=== PATIENT | male | born 1950 | race African-American/Black ===

== ENCOUNTER 2020-11-19 09:35 | Day surgery (SDC) | payer MEDICARE, BC, OTHER ==
[2020-11-18 11:32] VITALS: BMI 31.9
[2020-11-19] MEDS ORDERED: Thrombin 5000 UNITS/5 ML VIAL ONE (09:57)
[2020-11-19] MEDS ORDERED: Fentanyl 100 MCG/2 ML VIAL ONE ×5 (10:48→17:07)
[2020-11-19] MEDS ORDERED: Ondansetron PF 4 MG/2 ML Vial ONE (11:00)
[2020-11-19] MEDS ORDERED: Lidocaine 1% PF 5 ML VIAL ONE (11:00)
[2020-11-19] MEDS ORDERED: Dexamethasone 20 MG/5 ML VIAL ONE (11:00)
[2020-11-19] MEDS ORDERED: ePHEDrine Sulfate 50 MG/10 ML VIAL ONE (11:00)
[2020-11-19] MEDS ORDERED: PROPOFOL 200 MG/20 ML VIAL ONE (11:00)
[2020-11-19] MEDS ORDERED: PHENYLEPHRINE-NS 100 MCG/ML 10 ML SYRINGE ONE (11:00)
[2020-11-19] MEDS ORDERED: SUGAMMADEX SODIUM 200 MG/2 ML VIAL ONE (13:40)
[2020-11-19] MEDS ORDERED: Promethazine HCl 25 MG/ML VIAL SLOW IVP PRN (13:42)
[2020-11-19] MEDS ORDERED: Ondansetron HCl/PF 4 MG/2 ML Vial IVP PRN (13:42)
[2020-11-19] MEDS ORDERED: Meperidine HCl/PF 25 MG/ML VIAL SLOW IVP PRN (13:42)
[2020-11-19] MEDS ORDERED: Ketorolac Tromethamine 30 MG/ML VIAL IVP PRN (13:42)
[2020-11-19] MEDS ORDERED: HYDROmorphone 2 MG/ML VIAL SLOW IVP PRN (13:42)
[2020-11-19] MEDS ORDERED: Milk Of Magnesia 30 ML UDCUP PO PRN (14:42)
[2020-11-19] MEDS ORDERED: Acetaminophen 325 MG TAB PO PRN (14:42)
[2020-11-19] MEDS ORDERED: traMADol HCl 50 MG TAB PO PRN (14:42)
[2020-11-19] MEDS ORDERED: Morphine 2 MG/ML VIAL SLOW IVP PRN (14:42)
[2020-11-19] MEDS ORDERED: Mag-Al 1200 mg/1200 mg/30 ML UDCUP PO PRN (14:42)
[2020-11-19] MEDS ORDERED: Bisacodyl 10 MG SUPP PR PRN (14:42)
[2020-11-19] MEDS ORDERED: HYDROmorphone 0.5 MG/0.5 ML SYRINGE ONE (14:51)
[2020-11-19] MEDS ORDERED: HYDROmorphone 2 MG/ML VIAL ONE (15:29)
[2020-11-19] MEDS: Sodium Chloride 0.9% 1,000 ML IV SCH (17:59)
[2020-11-19] MEDS: Morphine 4 MG/ML VIAL SLOW IVP PRN (18:22)
[2020-11-19] MEDS: CEFAZOLIN 2 GM in Premix Bag 1 BAG IVPB SCH (18:59)
[2020-11-19] MEDS: Amlodipine 10 MG TAB PO SCH (20:43)
[2020-11-19] MEDS: Rosuvastatin 10 MG TAB PO SCH (20:43)
[2020-11-19] MEDS: HYDROcodone/Acetaminophen 7.5/325 mg Tablet PO PRN (20:51)
[2020-11-20] MEDS: HYDROcodone/Acetaminophen 7.5/325 mg Tablet PO PRN ×4 (02:03→22:53)
[2020-11-20] MEDS: Sodium Chloride 0.9% 1,000 ML IV SCH ×2 (02:03→20:46)
[2020-11-20] MEDS: CEFAZOLIN 2 GM in Premix Bag 1 BAG IVPB SCH (02:03)
[2020-11-20] MEDS: tiZANidine HCl 4 MG TAB PO PRN ×2 (04:14→22:53)
[2020-11-20] MEDS: Morphine 4 MG/ML VIAL SLOW IVP PRN ×3 (07:56→15:34)
[2020-11-20] MEDS: Acetaminophen/Codeine 30-300mg Tablet PO PRN ×2 (12:00→20:45)
[2020-11-20] MEDS: Rosuvastatin 10 MG TAB PO SCH (20:45)
[2020-11-20] MEDS: Amlodipine 10 MG TAB PO SCH (20:45)
[2020-11-21 09:29] VITALS: BP 138/65; TEMP 99.6
[2020-11-21] MEDS ORDERED: Simethicone Chewable 80 MG TAB PO PRN (09:54)
[2020-11-21] MEDS ORDERED: Pepto Bismol Chew TAB PO PRN (09:54)
[2020-11-21] MEDS: HYDROcodone/Acetaminophen 7.5/325 mg Tablet PO PRN (10:15)
[2020-11-21] MEDS: tiZANidine HCl 4 MG TAB PO PRN (10:15)
[2020-11-21] MEDS: Sodium Chloride 0.9% 1,000 ML IV SCH (10:31)
== END 2020-11-21 15:18 | disposition home or self-care (01) ==
LOC: SDC 09:35 → ONC 14:42 → SDC 11-21 15:18
PROVIDERS: ATTEND Surgery
PROC: 01NB0ZZ Release Lumbar Nerve, Open Approach (ICD-10-PCS; principal; 2020-11-19)
PROC: 0SB20ZZ Excision of Lumbar Vertebral Disc, Open Approach (ICD-10-PCS; 2020-11-19)
DX: M51.26 Other intervertebral disc displacement, lumbar region (principal); M54.16 Radiculopathy, lumbar region; M48.062 Spinal stenosis, lumbar region with neurogenic claudication; Z79.899 Other long term (current) drug therapy
CPT/HCPCS: 76000; 93970; J0690; J1100; J1170; J2270; J2405; J2704; J3010; J3370

== ENCOUNTER 2025-02-20 10:12 | Outpatient (CLI) | payer MEDICARE, BC, OTHER | END 2025-02-20 10:13 | disposition home or self-care (01) | LOC: SCSRAD 10:12 | PROVIDERS: ATTEND Orthopaedic Surgery | DX: M54.2 Cervicalgia (principal); M47.812 Spondylosis without myelopathy or radiculopathy, cervical region | CPT/HCPCS: 72040 ==

== ENCOUNTER 2025-03-06 19:35 | Inpatient (IN) | payer MEDICARE, BC, OTHER ==
[~2025-03-06 19:35] MED LIST: Iopamidol-370 76% 500 ML MDV (1 ML CHARGE) ONE
[2025-03-06 19:59] LABS: #Basophils 0.03 10x3/uL (0.0-0.2); #Eosinophils 0.07 10x3/uL (0.0-0.7); #Monocytes 1.40 10x3/uL (0.11-0.59); #Neutrophils 10.38 10x3/uL (1.40-6.50); %Basophils 0.2 % (0.0-1.0); %Eosinophils 0.5 % (0.0-10.0); %Lymphocytes 13.0 % (21.0-51.0); %Monocytes 10.2 % (0.0-10.0); %Neutrophils 75.6 % (42.0-75.0); Hematocrit 39.8 % (42.0-52.0); Hemoglobin 13.0 g/dL (14.0-18.0); Mean Corpuscular Hemoglobin 30.4 pg (27.0-31.0); Mean Corpuscular Volume 93.0 fL (78.0-98.0); Platelet Count 310 10x3/uL (130-400); Red Blood Cell (RBC) Count 4.28 mill/uL (4.70-6.10); White Blood Cell (WBC) Count 13.74 10x3/uL (4.8-10.8)
[2025-03-06 20:22] LABS: ALT (SGPT) 26 U/L (Less than 45); AST (SGOT) 20 U/L (11-34); Albumin 2.8 g/dL (3.1-4.5); Alkaline Phosphatase 90 U/L (40-110); Anion Gap 15 mmol/L (10-20); BUN (Urea Nitrogen) 21 mg/dL (8.4-25.7); Bilirubin, Total 0.6 mg/dL (0.3-1.2); Calc. Creatinine Clearance 0 mL/min (70-130); Calcium 9.5 mg/dL (7.8-10.44); Carbon Dioxide 23 mmol/L (23-31); Chloride 102 mmol/L (98-107); Globulin 4.9 g/dL (2.4-3.5); Glucose 118 mg/dL (83-110); Potassium 4.1 mmol/L (3.5-5.1); Sodium 136 mmol/L (136-145)
[2025-03-06] MEDS ORDERED: LevoFLOXacin 750 mg/D5W 150 ml Premix Bag ONE (21:57)
[2025-03-06] MEDS ORDERED: Heparin 5,000 UNITS/ML VIAL ONE ×2 (21:57→22:40)
[2025-03-06] MEDS ORDERED: Cefepime 2 GM VIAL ONE (21:57)
[2025-03-06 22:26] LABS: INR-International Normal Ratio 1.1; Prothrombin Time 14.5 sec (12.0-14.7)
[2025-03-06 22:27] LABS: PTT 32.8 sec (22.9-36.1)
[2025-03-07] MEDS ORDERED: Ondansetron PF 4 MG/2 ML Vial IVP PRN (01:19)
[2025-03-07] MEDS ORDERED: Heparin 10,000 UNITS/ 10 ML VIAL SLOW IVP SCH (03:30)
[2025-03-07 05:19] LABS: #Basophils Less than 0.03 10x3/uL (0.0-0.2); #Eosinophils Less than 0.03 10x3/uL (0.0-0.7); #Monocytes 1.57 10x3/uL (0.11-0.59); #Neutrophils 12.46 10x3/uL (1.40-6.50); %Basophils 0.1 % (0.0-1.0); %Eosinophils 0.1 % (0.0-10.0); %Lymphocytes 8.5 % (21.0-51.0); %Monocytes 10.2 % (0.0-10.0); %Neutrophils 80.7 % (42.0-75.0); Hematocrit 39.2 % (42.0-52.0); Hemoglobin 12.9 g/dL (14.0-18.0); Mean Corpuscular Hemoglobin 30.5 pg (27.0-31.0); Mean Corpuscular Volume 92.7 fL (78.0-98.0); Platelet Count 311 10x3/uL (130-400); Red Blood Cell (RBC) Count 4.23 mill/uL (4.70-6.10); White Blood Cell (WBC) Count 15.44 10x3/uL (4.8-10.8)
[2025-03-07 05:43] LABS: Anion Gap 15 mmol/L (10-20); BUN (Urea Nitrogen) 22 mg/dL (8.4-25.7); Calc. Creatinine Clearance 0 mL/min (70-130); Calcium 9.6 mg/dL (7.8-10.44); Carbon Dioxide 23 mmol/L (23-31); Chloride 101 mmol/L (98-107); Glucose 124 mg/dL (83-110); Potassium 3.9 mmol/L (3.5-5.1); Sodium 135 mmol/L (136-145)
[2025-03-07 05:49] LABS: PTT 184.6 sec (22.9-36.1)
[2025-03-07] MEDS ORDERED: Artificial Tear Ophth Sol 15 ML BOT EA EYE PRN (07:28)
[2025-03-07] MEDS: Vancomycin (BATCH) 2.5 GM in Premix 1 BAG IVPB SCH (07:36)
[2025-03-07] MEDS: Multivitamin W/ Minerals 1 TAB PO SCH (09:52)
[2025-03-07 12:02] VITALS: BMI 31.8
[2025-03-07] MEDS: Ibuprofen 200 MG TAB PO SCH ×2 (16:51→20:59)
[2025-03-07] MEDS: Pantoprazole 40 MG DR.TAB PO SCH (16:51)
[2025-03-07] MEDS: Rosuvastatin 5 MG TAB PO SCH (20:58)
[2025-03-07] MEDS: Apixaban 5 MG TAB PO SCH (20:59)
[2025-03-07] MEDS: Acetaminophen 325 MG TAB PO PRN (23:55)
[2025-03-07] MEDS: Simethicone Chewable 80 MG TAB PO PRN (23:55)
[2025-03-08] MEDS: LevoFLOXacin 750 mg/D5W 750 MG in Premix 1 BAG IVPB SCH (02:40)
[2025-03-08 04:27] LABS: #Basophils Less than 0.03 10x3/uL (0.0-0.2); #Eosinophils 0.09 10x3/uL (0.0-0.7); #Monocytes 1.65 10x3/uL (0.11-0.59); #Neutrophils 10.72 10x3/uL (1.40-6.50); %Basophils 0.1 % (0.0-1.0); %Eosinophils 0.6 % (0.0-10.0); %Lymphocytes 11.5 % (21.0-51.0); %Monocytes 11.7 % (0.0-10.0); %Neutrophils 75.7 % (42.0-75.0); Hematocrit 33.9 % (42.0-52.0); Hemoglobin 11.2 g/dL (14.0-18.0); Mean Corpuscular Hemoglobin 30.4 pg (27.0-31.0); Mean Corpuscular Volume 91.9 fL (78.0-98.0); Platelet Count 292 10x3/uL (130-400); Red Blood Cell (RBC) Count 3.69 mill/uL (4.70-6.10); White Blood Cell (WBC) Count 14.16 10x3/uL (4.8-10.8)
[2025-03-08 05:22] LABS: Anion Gap 13 mmol/L (10-20); BUN (Urea Nitrogen) 24 mg/dL (8.4-25.7); Calc. Creatinine Clearance 68 mL/min (70-130); Calcium 8.6 mg/dL (7.8-10.44); Carbon Dioxide 25 mmol/L (23-31); Chloride 99 mmol/L (98-107); Glucose 113 mg/dL (83-110); Potassium 3.6 mmol/L (3.5-5.1); Sodium 133 mmol/L (136-145)
[2025-03-08] MEDS ORDERED: Vancomycin 1 GM in Premix 1 BAG IVPB SCH (09:00)
[2025-03-08] MEDS: Pantoprazole 40 MG DR.TAB PO SCH (10:24)
[2025-03-08] MEDS: Vancomycin (BATCH) 2.5 GM in Premix 1 BAG IVPB SCH (10:27)
[2025-03-09 04:02] LABS: #Basophils Less than 0.03 10x3/uL (0.0-0.2); #Eosinophils 0.08 10x3/uL (0.0-0.7); #Monocytes 1.57 10x3/uL (0.11-0.59); #Neutrophils 10.68 10x3/uL (1.40-6.50); %Basophils 0.1 % (0.0-1.0); %Eosinophils 0.6 % (0.0-10.0); %Lymphocytes 11.3 % (21.0-51.0); %Monocytes 11.2 % (0.0-10.0); %Neutrophils 76.4 % (42.0-75.0); Hematocrit 34.1 % (42.0-52.0); Hemoglobin 11.3 g/dL (14.0-18.0); Mean Corpuscular Hemoglobin 30.8 pg (27.0-31.0); Mean Corpuscular Volume 92.9 fL (78.0-98.0); Platelet Count 318 10x3/uL (130-400); Red Blood Cell (RBC) Count 3.67 mill/uL (4.70-6.10); White Blood Cell (WBC) Count 13.99 10x3/uL (4.8-10.8)
[2025-03-09 04:17] LABS: Vancomycin, Random 17.6 ug/mL (See Comment)
[2025-03-09 04:32] LABS: Anion Gap 11 mmol/L (10-20); BUN (Urea Nitrogen) 27 mg/dL (8.4-25.7); Calc. Creatinine Clearance 68 mL/min (70-130); Calcium 8.9 mg/dL (7.8-10.44); Carbon Dioxide 23 mmol/L (23-31); Chloride 105 mmol/L (98-107); Glucose 123 mg/dL (83-110); Potassium 4.0 mmol/L (3.5-5.1); Sodium 135 mmol/L (136-145)
[2025-03-09] MEDS: Vancomycin 1.5 GM / NS 500ML VIAL-2-BAG IVPB SCH (10:32)
[2025-03-11 04:23] LABS: #Basophils 0.03 10x3/uL (0.0-0.2); #Eosinophils 0.29 10x3/uL (0.0-0.7); #Monocytes 0.85 10x3/uL (0.11-0.59); #Neutrophils 5.50 10x3/uL (1.40-6.50); %Basophils 0.4 % (0.0-1.0); %Eosinophils 3.4 % (0.0-10.0); %Lymphocytes 20.7 % (21.0-51.0); %Monocytes 10.1 % (0.0-10.0); %Neutrophils 65.2 % (42.0-75.0); Hematocrit 34.3 % (42.0-52.0); Hemoglobin 11.0 g/dL (14.0-18.0); Mean Corpuscular Hemoglobin 30.4 pg (27.0-31.0); Mean Corpuscular Volume 94.8 fL (78.0-98.0); Platelet Count 330 10x3/uL (130-400); Red Blood Cell (RBC) Count 3.62 mill/uL (4.70-6.10); White Blood Cell (WBC) Count 8.44 10x3/uL (4.8-10.8)
[2025-03-11 04:46] LABS: Anion Gap 13 mmol/L (10-20); BUN (Urea Nitrogen) 25 mg/dL (8.4-25.7); Calc. Creatinine Clearance 87 mL/min (70-130); Calcium 8.6 mg/dL (7.8-10.44); Carbon Dioxide 23 mmol/L (23-31); Chloride 110 mmol/L (98-107); Glucose 99 mg/dL (83-110); Potassium 4.1 mmol/L (3.5-5.1); Sodium 142 mmol/L (136-145)
[2025-03-12 04:17] LABS: #Basophils 0.03 10x3/uL (0.0-0.2); #Eosinophils 0.27 10x3/uL (0.0-0.7); #Monocytes 0.81 10x3/uL (0.11-0.59); #Neutrophils 5.21 10x3/uL (1.40-6.50); %Basophils 0.4 % (0.0-1.0); %Eosinophils 3.3 % (0.0-10.0); %Lymphocytes 23.0 % (21.0-51.0); %Monocytes 9.8 % (0.0-10.0); %Neutrophils 63.3 % (42.0-75.0); Hematocrit 33.3 % (42.0-52.0); Hemoglobin 10.9 g/dL (14.0-18.0); Mean Corpuscular Hemoglobin 30.1 pg (27.0-31.0); Mean Corpuscular Volume 92.0 fL (78.0-98.0); Platelet Count 293 10x3/uL (130-400); Red Blood Cell (RBC) Count 3.62 mill/uL (4.70-6.10); White Blood Cell (WBC) Count 8.23 10x3/uL (4.8-10.8)
[2025-03-12 04:27] LABS: Anion Gap 12 mmol/L (10-20); BUN (Urea Nitrogen) 21 mg/dL (8.4-25.7); Calc. Creatinine Clearance 93 mL/min (70-130); Calcium 8.5 mg/dL (7.8-10.44); Carbon Dioxide 22 mmol/L (23-31); Chloride 110 mmol/L (98-107); Glucose 97 mg/dL (83-110); Magnesium 2.0 mg/dL (1.6-2.6); Potassium 3.9 mmol/L (3.5-5.1); Sodium 140 mmol/L (136-145)
[2025-03-13] MEDS ORDERED: Communication Order-Pharmacy FS PRN (08:45)
[2025-03-13] MEDS ORDERED: Enoxaparin 80 MG (0.8 mL) SYRINGE SC SCH (09:00)
[2025-03-13] MEDS: Enoxaparin 100 MG (1 mL) SYRINGE SC SCH (09:20)
[2025-03-15] MEDS ORDERED: Iopamidol 370 76% 100 ML VIAL ONE (09:06)
[2025-03-15] MEDS ORDERED: Lidocaine 1% (PF) 30 ML VIAL ONE (11:26)
[2025-03-15] MEDS ORDERED: Nitroglycerin 0.4 MG TAB (25 Tab Bottle) SL PRN (13:47)
[2025-03-16 08:07] LABS: #Basophils 0.03 10x3/uL (0.0-0.2); #Eosinophils 0.31 10x3/uL (0.0-0.7); #Monocytes 0.52 10x3/uL (0.11-0.59); #Neutrophils 3.26 10x3/uL (1.40-6.50); %Basophils 0.5 % (0.0-1.0); %Eosinophils 5.4 % (0.0-10.0); %Lymphocytes 27.8 % (21.0-51.0); %Monocytes 9.1 % (0.0-10.0); %Neutrophils 57.0 % (42.0-75.0); Hematocrit 31.7 % (42.0-52.0); Hemoglobin 10.3 g/dL (14.0-18.0); Mean Corpuscular Hemoglobin 30.1 pg (27.0-31.0); Mean Corpuscular Volume 92.7 fL (78.0-98.0); Platelet Count 229 10x3/uL (130-400); Red Blood Cell (RBC) Count 3.42 mill/uL (4.70-6.10); White Blood Cell (WBC) Count 5.72 10x3/uL (4.8-10.8)
[2025-03-16 08:19] LABS: Anion Gap 12 mmol/L (10-20); BUN (Urea Nitrogen) 12 mg/dL (8.4-25.7); Calc. Creatinine Clearance 92 mL/min (70-130); Calcium 8.5 mg/dL (7.8-10.44); Carbon Dioxide 22 mmol/L (23-31); Chloride 111 mmol/L (98-107); Glucose 105 mg/dL (83-110); Potassium 3.8 mmol/L (3.5-5.1); Sodium 141 mmol/L (136-145)
[2025-03-16] MEDS: Enoxaparin 100 MG (1 mL) SYRINGE SC SCH (08:37)
[2025-03-17 03:54] LABS: #Basophils 0.03 10x3/uL (0.0-0.2); #Eosinophils 0.38 10x3/uL (0.0-0.7); #Monocytes 0.67 10x3/uL (0.11-0.59); #Neutrophils 2.92 10x3/uL (1.40-6.50); %Basophils 0.5 % (0.0-1.0); %Eosinophils 5.9 % (0.0-10.0); %Lymphocytes 37.8 % (21.0-51.0); %Monocytes 10.4 % (0.0-10.0); %Neutrophils 45.2 % (42.0-75.0); Hematocrit 32.6 % (42.0-52.0); Hemoglobin 10.8 g/dL (14.0-18.0); Mean Corpuscular Hemoglobin 30.3 pg (27.0-31.0); Mean Corpuscular Volume 91.6 fL (78.0-98.0); Platelet Count 226 10x3/uL (130-400); Red Blood Cell (RBC) Count 3.56 mill/uL (4.70-6.10); White Blood Cell (WBC) Count 6.45 10x3/uL (4.8-10.8)
[2025-03-17 04:26] LABS: Anion Gap 12 mmol/L (10-20); BUN (Urea Nitrogen) 13 mg/dL (8.4-25.7); Calc. Creatinine Clearance 85 mL/min (70-130); Calcium 8.8 mg/dL (7.8-10.44); Carbon Dioxide 24 mmol/L (23-31); Chloride 110 mmol/L (98-107); Glucose 89 mg/dL (83-110); Potassium 3.9 mmol/L (3.5-5.1); Sodium 142 mmol/L (136-145)
[2025-03-19 04:37] LABS: #Basophils 0.03 10x3/uL (0.0-0.2); #Eosinophils 0.41 10x3/uL (0.0-0.7); #Monocytes 0.67 10x3/uL (0.11-0.59); #Neutrophils 3.17 10x3/uL (1.40-6.50); %Basophils 0.4 % (0.0-1.0); %Eosinophils 6.0 % (0.0-10.0); %Lymphocytes 37.4 % (21.0-51.0); %Monocytes 9.8 % (0.0-10.0); %Neutrophils 46.1 % (42.0-75.0); Hematocrit 32.1 % (42.0-52.0); Hemoglobin 10.4 g/dL (14.0-18.0); Mean Corpuscular Hemoglobin 29.5 pg (27.0-31.0); Mean Corpuscular Volume 90.9 fL (78.0-98.0); Platelet Count 242 10x3/uL (130-400); Red Blood Cell (RBC) Count 3.53 mill/uL (4.70-6.10); White Blood Cell (WBC) Count 6.87 10x3/uL (4.8-10.8)
[2025-03-19 05:05] LABS: Anion Gap 14 mmol/L (10-20); BUN (Urea Nitrogen) 14 mg/dL (8.4-25.7); Calc. Creatinine Clearance 95 mL/min (70-130); Calcium 8.8 mg/dL (7.8-10.44); Carbon Dioxide 23 mmol/L (23-31); Chloride 109 mmol/L (98-107); Glucose 87 mg/dL (83-110); Potassium 3.7 mmol/L (3.5-5.1); Sodium 142 mmol/L (136-145)
[2025-03-20] MEDS ORDERED: SUCCINYLCHOLINE/SOD CL,ISO/PF 200 MG/10 ML SYRINGE FS ONE (09:57)
[2025-03-20] MEDS ORDERED: Rocuronium Bromide 10 MG/ML (10ML VIAL) ONE (09:57)
[2025-03-20] MEDS ORDERED: PROPOFOL 20 ML ONE (09:57)
[2025-03-20] MEDS ORDERED: CEFAZOLIN 2 GM VIAL ONE (10:15)
[2025-03-20] MEDS ORDERED: Ketamine In 0.9 % NaCl 50 MG/5 ML SYRINGE ONE (11:02)
[2025-03-20] MEDS ORDERED: fentaNYL PF 100 MCG/2 ML SYRINGE ONE (15:07)
[2025-03-20] MEDS ORDERED: HYDROmorphone 0.5 MG/0.5 ML SYRINGE ONE ×3 (15:50→17:25)
[2025-03-20] MEDS ORDERED: HYDROmorphone 2 MG/ML VIAL ONE (16:43)
[2025-03-20] MEDS: CEFAZOLIN 2 GM VIAL ONE (18:49)
[2025-03-21] MEDS: Ketorolac Tromethamine 30 MG (1 mL) VIAL IVP SCH (01:55)
[2025-03-21 04:24] LABS: #Basophils Less than 0.03 10x3/uL (0.0-0.2); #Eosinophils Less than 0.03 10x3/uL (0.0-0.7); #Monocytes 0.92 10x3/uL (0.11-0.59); #Neutrophils 7.93 10x3/uL (1.40-6.50); %Basophils 0.2 % (0.0-1.0); %Eosinophils 0.2 % (0.0-10.0); %Lymphocytes 10.5 % (21.0-51.0); %Monocytes 9.2 % (0.0-10.0); %Neutrophils 79.6 % (42.0-75.0); Hematocrit 33.9 % (42.0-52.0); Hemoglobin 10.9 g/dL (14.0-18.0); Mean Corpuscular Hemoglobin 30.1 pg (27.0-31.0); Mean Corpuscular Volume 93.6 fL (78.0-98.0); Platelet Count 266 10x3/uL (130-400); Red Blood Cell (RBC) Count 3.62 mill/uL (4.70-6.10); White Blood Cell (WBC) Count 9.97 10x3/uL (4.8-10.8)
[2025-03-21 05:48] LABS: Anion Gap 17 mmol/L (10-20); BUN (Urea Nitrogen) 14 mg/dL (8.4-25.7); Calc. Creatinine Clearance 89 mL/min (70-130); Calcium 8.8 mg/dL (7.8-10.44); Carbon Dioxide 23 mmol/L (23-31); Chloride 109 mmol/L (98-107); Glucose 109 mg/dL (83-110); Potassium 3.9 mmol/L (3.5-5.1); Sodium 145 mmol/L (136-145)
[2025-03-21] MEDS: Acetaminophen/Codeine 30-300mg Tablet PO PRN (08:57)
[2025-03-22] MEDS: Pantoprazole 40 MG VIAL IVP SCH (10:27)
[2025-03-22] MEDS: Enoxaparin 100 MG (1 mL) SYRINGE SC SCH (21:54)
[2025-03-23] MEDS: Pantoprazole 40 MG VIAL IVP SCH (09:06)
[2025-03-23] MEDS: Phenol 177 ML BOT PO PRN (14:18)
[2025-03-23] MEDS: D5 1/2 NS w/20 mEq KCL 1,000 ML IV SCH (15:34)
[2025-03-23 15:53] VITALS: BMI 31.1
[2025-03-24 04:24] LABS: #Basophils 0.03 10x3/uL (0.0-0.2); #Eosinophils 0.05 10x3/uL (0.0-0.7); #Monocytes 0.97 10x3/uL (0.11-0.59); #Neutrophils 6.66 10x3/uL (1.40-6.50); %Basophils 0.3 % (0.0-1.0); %Eosinophils 0.6 % (0.0-10.0); %Lymphocytes 11.6 % (21.0-51.0); %Monocytes 11.1 % (0.0-10.0); %Neutrophils 76.1 % (42.0-75.0); Hematocrit 33.6 % (42.0-52.0); Hemoglobin 10.4 g/dL (14.0-18.0); Mean Corpuscular Hemoglobin 29.4 pg (27.0-31.0); Mean Corpuscular Volume 94.9 fL (78.0-98.0); Platelet Count 251 10x3/uL (130-400); Red Blood Cell (RBC) Count 3.54 mill/uL (4.70-6.10); White Blood Cell (WBC) Count 8.76 10x3/uL (4.8-10.8)
[2025-03-24 04:45] LABS: Anion Gap 14 mmol/L (10-20); BUN (Urea Nitrogen) 19 mg/dL (8.4-25.7); Calc. Creatinine Clearance 110 mL/min (70-130); Calcium 9.1 mg/dL (7.8-10.44); Carbon Dioxide 23 mmol/L (23-31); Chloride 110 mmol/L (98-107); Glucose 128 mg/dL (83-110); Magnesium 2.0 mg/dL (1.6-2.6); Potassium 3.4 mmol/L (3.5-5.1); Sodium 144 mmol/L (136-145)
[2025-03-24] MEDS: Metoprolol Tartrate 5 MG (5 mL) VIAL IVP SCH (08:19)
[2025-03-24] MEDS: Potassium Chloride 20 MEQ in Premix 1 BAG IVPB SCH (11:41)
[2025-03-24] MEDS: Aluminum & Magnesium Hydroxide 60 ML, diphenhydrAMINE 150 MG, Lidocaine 2% Viscous Solu... SSW SCH (15:24)
[2025-03-24] MEDS: guaiFENesin/Codeine 200 mg/20 mg 10 ml Cup PO PRN (20:21)
[2025-03-25 04:36] LABS: #Basophils Less than 0.03 10x3/uL (0.0-0.2); #Eosinophils Less than 0.03 10x3/uL (0.0-0.7); #Monocytes 0.93 10x3/uL (0.11-0.59); #Neutrophils 6.60 10x3/uL (1.40-6.50); %Basophils 0.2 % (0.0-1.0); %Eosinophils 0.0 % (0.0-10.0); %Lymphocytes 15.0 % (21.0-51.0); %Monocytes 10.5 % (0.0-10.0); %Neutrophils 74.2 % (42.0-75.0); Hematocrit 32.2 % (42.0-52.0); Hemoglobin 10.0 g/dL (14.0-18.0); Mean Corpuscular Hemoglobin 29.6 pg (27.0-31.0); Mean Corpuscular Volume 95.3 fL (78.0-98.0); Platelet Count 236 10x3/uL (130-400); Red Blood Cell (RBC) Count 3.38 mill/uL (4.70-6.10); White Blood Cell (WBC) Count 8.89 10x3/uL (4.8-10.8)
[2025-03-25 05:06] LABS: Anion Gap 11 mmol/L (10-20); BUN (Urea Nitrogen) 17 mg/dL (8.4-25.7); Calc. Creatinine Clearance 96 mL/min (70-130); Calcium 9.1 mg/dL (7.8-10.44); Carbon Dioxide 25 mmol/L (23-31); Chloride 112 mmol/L (98-107); Glucose 137 mg/dL (83-110); Magnesium 2.0 mg/dL (1.6-2.6); Potassium 3.8 mmol/L (3.5-5.1); Sodium 144 mmol/L (136-145)
[2025-03-25] MEDS: GUAIFENESIN SF SOLN 200 MG/10 ML UDCUP PO SCH (16:50)
[2025-03-25] MEDS: Metoprolol Tartrate 5 MG (5 mL) VIAL IVP SCH (18:03)
[2025-03-25] MEDS ORDERED: GUAIFENESIN SF SOLN 200 MG/10 ML UDCUP PO PRN (22:00)
[2025-03-25] MEDS: Benzonatate 100 MG CAP PO SCH (22:03)
[2025-03-25] MEDS: Guaifenesin DM 100-10/5 ML UDCUP PO SCH (22:28)
[2025-03-26 16:35] VITALS: BP 145/89; TEMP 97.3
== END 2025-03-26 16:55 | DRG 981 ==
LOC: ERS 19:35 → PCU 23:11
PROVIDERS: ADMIT Internal Medicine; ATTEND Hospitalist
PROC: 06H03DZ Insertion of Intraluminal Device into Inferior Vena Cava, Percutaneous Approach (ICD-10-PCS; principal; 2025-03-15)
PROC: 0RG20A0 Fusion of 2 or more Cervical Vertebral Joints with Interbody Fusion Device, Anterior Approach, Anterior Column, Open Approach (ICD-10-PCS; 2025-03-20)
PROC: 0RB30ZZ Excision of Cervical Vertebral Disc, Open Approach (ICD-10-PCS; 2025-03-20)
PROC: 00NW0ZZ Release Cervical Spinal Cord, Open Approach (ICD-10-PCS; 2025-03-20)
DX: I26.94 Multiple subsegmental thrombotic pulmonary emboli without acute cor pulmonale (principal); J96.01 Acute respiratory failure with hypoxia; M48.02 Spinal stenosis, cervical region; M54.12 Radiculopathy, cervical region; I10 Essential (primary) hypertension; E78.5 Hyperlipidemia, unspecified; N40.0 Benign prostatic hyperplasia without lower urinary tract symptoms; R13.12 Dysphagia, oropharyngeal phase; I48.0 Paroxysmal atrial fibrillation; I44.0 Atrioventricular block, first degree; Z79.899 Other long term (current) drug therapy; Z87.891 Personal history of nicotine dependence
CPT/HCPCS: 36415; 36416; 37191; 71045; 71275; 72040; 74176; 74177; 80048; 80053; 80202; 83605; 83735; 83880; 84145; 84484; 85025; 85610; 85730; 87040; 87086; 87149; 93005; 93970; 94760; 96365; 96366; 96367; 96368; 96375; 99152; 99153; A4314; C1713; C1769; C1773; C1880; C1889; C1894; J0692; J1171; J1644; J1650; J1885; J1956; J2250; J2470; J2704; J3010; J3373; J3480; J3490; J7030; J7042; Q0163; Q9967

== ENCOUNTER 2025-04-23 13:25 | Day surgery (SDC) | payer MEDICARE, BC ==
[2025-04-17 11:41] VITALS: BMI 29.7
[~2025-04-23 13:25] MED LIST changes: +Iopamidol 370 76% 100 ML VIAL ONE; -Iopamidol-370 76% 500 ML MDV (1 ML CHARGE) ONE
[2025-04-23] MEDS ORDERED: Lidocaine 1% (PF) 30 ML VIAL ONE (13:29)
[2025-04-23 14:08] LABS: #Basophils Less than 0.03 10x3/uL (0.0-0.2); #Eosinophils 0.16 10x3/uL (0.0-0.7); #Monocytes 0.51 10x3/uL (0.11-0.59); #Neutrophils 2.96 10x3/uL (1.40-6.50); %Basophils 0.4 % (0.0-1.0); %Eosinophils 2.8 % (0.0-10.0); %Lymphocytes 34.9 % (21.0-51.0); %Monocytes 9.1 % (0.0-10.0); %Neutrophils 52.6 % (42.0-75.0); Hematocrit 33.4 % (42.0-52.0); Hemoglobin 10.5 g/dL (14.0-18.0); Mean Corpuscular Hemoglobin 29.9 pg (27.0-31.0); Mean Corpuscular Volume 95.2 fL (78.0-98.0); Platelet Count 235 10x3/uL (130-400); Red Blood Cell (RBC) Count 3.51 mill/uL (4.70-6.10); White Blood Cell (WBC) Count 5.62 10x3/uL (4.8-10.8)
[2025-04-23 14:25] LABS: ALT (SGPT) Less than 7 U/L (Less than 45); AST (SGOT) 25 U/L (11-34); Albumin 2.9 g/dL (3.1-4.5); Alkaline Phosphatase 94 U/L (40-110); Anion Gap 12 mmol/L (10-20); BUN (Urea Nitrogen) 10 mg/dL (8.4-25.7); Bilirubin, Total 0.4 mg/dL (0.3-1.2); Calc. Creatinine Clearance 78 mL/min (70-130); Calcium 9.1 mg/dL (7.8-10.44); Carbon Dioxide 24 mmol/L (23-31); Chloride 114 mmol/L (98-107); Globulin 4.2 g/dL (2.4-3.5); Glucose 88 mg/dL (83-110); Potassium 3.9 mmol/L (3.5-5.1); Sodium 146 mmol/L (136-145)
[2025-04-23] MEDS ORDERED: hydrALAZINE 20 MG/ML VIAL ONE (17:16)
== END 2025-04-23 19:30 | disposition home or self-care (01) ==
LOC: CCL 13:25
PROVIDERS: ATTEND Internal Medicine Cardiovascular Disease
PROC: 06PY3DZ Removal of Intraluminal Device from Lower Vein, Percutaneous Approach (ICD-10-PCS; principal; 2025-04-23)
DX: I26.99 Other pulmonary embolism without acute cor pulmonale (principal); I48.0 Paroxysmal atrial fibrillation; I10 Essential (primary) hypertension; E78.00 Pure hypercholesterolemia, unspecified; Z87.891 Personal history of nicotine dependence; Z86.718 Personal history of other venous thrombosis and embolism; Z88.5 Allergy status to narcotic agent; Z79.01 Long term (current) use of anticoagulants; Z79.899 Other long term (current) drug therapy
CPT/HCPCS: 37193; 80053; 85025; J0360; J2250; 99152; C1769; C1773; C1894